=== PATIENT | female | born 1960 | race Caucasian/White ===

== ENCOUNTER 2017-03-17 10:53 | Emergency (ER) | payer MEDICARE, OTHER ==
[2017-03-17] MEDS ORDERED: methylPREDNISolone Sod Succ/PF 125 MG/2 ML VIAL ONE (11:27)
[2017-03-17] MEDS ORDERED: Magnesium Sulfate 2 GM/100 ML BAG ONE (11:27)
[2017-03-17] MEDS ORDERED: Water For Inject, Bacteriostat 30 ML ONE (11:28)
[2017-03-17 11:34] LABS: #Basophils 0.1 thou/uL (0.0-0.2); #Eosinphils 0.6 thou/uL (0.0-0.7); #Lymphocytes 2.2 thou/uL (1.20-3.40); #Monocytes 0.5 thou/uL (0.11-0.59); #Neutrophils 3.2 thou/uL (1.40-6.50); %Basophils 1.2 % (0.0-1.0); %Eosinophils 9.1 % (0.0-10.0); %Lymphocytes 33.5 % (21.0-51.0); Mean Platelet Volume 8.2 fL (7.4-10.4); Red Blood Cell (RBC) Count 4.72 mill/uL (4.20-5.40); White Blood Cell (WBC) Count 6.5 thou/uL (4.8-10.8)
--- NOTE | 2017-03-17 11:43 | RAD ---
SINGLE VIEW OF THE CHEST: Comparison: 12-11-16 History: Shortness of breath, dyspnea. FINDINGS: Single view of the chest shows a normal sized cardiomediastinal silhouette. There is no evidence of consolidation, mass, or pleural effusion. The patient has bilateral breast implants. IMPRESSION: No evidence of acute cardiopulmonary disease. POS: [facility]
[2017-03-17 11:52] LABS: ALT (SGPT) 11 U/L (8-55); AST (SGOT) 26 U/L (5-34); Alkaline Phosphatase 69 U/L (40-150); Anion Gap 12 mmol/L (10-20); BUN (Urea Nitrogen) 7 mg/dL (9.8-20.1); Bilirubin, Total 1.2 mg/dL (0.2-1.2); Calc. Creatinine Clearance 0 mL/min (70-130); Calcium 9.9 mg/dL (7.8-10.44); Carbon Dioxide 29 mmol/L (22-29); Chloride 103 mmol/L (98-107); Estimated GFR-MDRD 80; Globulin 3.2 g/dL (2.4-3.5); Protein, Total 7.2 g/dL (6.0-8.3)
[2017-03-17] MEDS ORDERED: Albuterol Sulfate 2.5 mg/0.5 ml Neb ONE (13:20)
[2017-03-17] MEDS ORDERED: Albuterol Sulfate 2.5 mg/3 ml Neb ONE (13:20)
--- NOTE | 2017-03-20 14:48 | EKG ---
Test Reason : Blood Pressure : / mmHG Vent. Rate : 067 BPM Atrial Rate : 067 BPM P-R Int : 132 ms QRS Dur : 080 ms QT Int : 452 ms P-R-T Axes : 077 089 072 degrees QTc Int : 477 ms Normal sinus rhythm Possible Left atrial enlargement Borderline ECG Confirmed by NIKOLE MOSER, POONAM Rodriguez ([id number]), acquisition editor MILDRED REID ([id number]) on 03/20/2017 2:48:11 PM Referred By: Confirmed By:POONAM AGUSTIN MD
== END 2017-03-17 15:00 | disposition home or self-care (01) ==
LOC: ERS 10:53
DX: J44.1 Chronic obstructive pulmonary disease with (acute) exacerbation (principal); F41.9 Anxiety disorder, unspecified; F43.10 Post-traumatic stress disorder, unspecified; Z87.891 Personal history of nicotine dependence; Z79.899 Other long term (current) drug therapy
CPT/HCPCS: 36415; 71010; 80053; 85025; 93005; 94640; 96365; 96375; J2930; J3475; J7611; J7620

== ENCOUNTER 2017-07-10 17:20 | Emergency (ER) | payer MEDICARE ==
[2017-07-10 18:25] LABS: #Basophils 0.1 thou/uL (0.0-0.2); #Eosinphils 0.7 thou/uL (0.0-0.7); #Lymphocytes 2.8 thou/uL (1.20-3.40); #Monocytes 0.4 thou/uL (0.11-0.59); #Neutrophils 3.5 thou/uL (1.40-6.50); %Basophils 1.7 % (0.0-1.0); %Monocytes 4.9 % (0.0-10.0); %Neutrophils 46.4 % (42.0-75.0); Mean Corpuscular HGB CONC 32.7 g/dL (32.0-36.0); Mean Corpuscular Hemoglobin 31.7 pg (27.0-31.0); Mean Corpuscular Volume 96.9 fl (81.0-99.0); Mean Platelet Volume 8.8 fL (7.4-10.4); Platelet Count 204 thou/uL (130-400); RBC Distribution Width 12.1 % (11.5-14.5); Red Blood Cell (RBC) Count 4.42 mill/uL (4.20-5.40); White Blood Cell (WBC) Count 7.4 thou/uL (4.8-10.8)
[2017-07-10 18:33] LABS: Anion Gap 13 mmol/L (10-20); BUN (Urea Nitrogen) 9 mg/dL (9.8-20.1); Calc. Creatinine Clearance 0 mL/min (70-130); Calcium 10.1 mg/dL (7.8-10.44); Carbon Dioxide 30 mmol/L (22-29); Chloride 102 mmol/L (98-107); Estimated GFR-MDRD 69; Glucose 126 mg/dL (70-105); Sodium 141 mmol/L (136-145)
--- NOTE | 2017-07-10 18:48 | RAD ---
SINGLE VIEW OF THE CHEST 07/10/17 COMPARISON: 03/17/17 HISTORY: Dyspnea. FINDINGS: Single view of the chest shows a normal sized cardiomediastinal silhouette. There is no evidence of c onsolidation, mass or pleural effusion. Degenerative changes are see in the spine. The patient has bi lateral breast implants. IMPRESSION: No evidence of acute cardiopulmonary disease. POS: [facility]
[2017-07-10] MEDS ORDERED: methylPREDNISolone Sod Succ/PF 125 MG/2 ML VIAL ONE ×2 (19:42→19:43)
== END 2017-07-10 21:26 | disposition home or self-care (01) ==
LOC: ERS 17:20
DX: J44.1 Chronic obstructive pulmonary disease with (acute) exacerbation (principal); I10 Essential (primary) hypertension; F41.9 Anxiety disorder, unspecified; F43.10 Post-traumatic stress disorder, unspecified; Z79.899 Other long term (current) drug therapy; Z87.891 Personal history of nicotine dependence
CPT/HCPCS: 36416; 71045; 80048; 85025; 93005; 94640; 96374; J2930; J7620

== ENCOUNTER 2017-09-21 23:47 | Emergency (ER) | payer MEDICARE ==
[2017-09-22] MEDS ORDERED: Ondansetron ODT 4 MG TAB ONE (00:41)
[2017-09-22 00:50] LABS: #Basophils 0.1 thou/uL (0.0-0.2); #Eosinphils 0.1 thou/uL (0.0-0.7); #Lymphocytes 2.4 thou/uL (1.20-3.40); #Monocytes 0.6 thou/uL (0.11-0.59); #Neutrophils 7.4 thou/uL (1.40-6.50); %Basophils 0.8 % (0.0-1.0); %Eosinophils 1.4 % (0.0-10.0); %Lymphocytes 22.7 % (21.0-51.0); %Monocytes 5.7 % (0.0-10.0); %Neutrophils 69.3 % (42.0-75.0); Hemoglobin 14.5 g/dL (12.0-16.0); Mean Corpuscular HGB CONC 32.6 g/dL (32.0-36.0); Mean Corpuscular Hemoglobin 31.6 pg (27.0-31.0); Mean Platelet Volume 7.8 fL (7.4-10.4); Platelet Count 210 thou/uL (130-400); RBC Distribution Width 11.8 % (11.5-14.5); White Blood Cell (WBC) Count 10.6 thou/uL (4.8-10.8)
[2017-09-22] MEDS ORDERED: Albuterol Sulfate 2.5 mg/3 ml Neb ONE (00:54)
[2017-09-22 01:04] LABS: ALT (SGPT) 13 U/L (8-55); AST (SGOT) 21 U/L (5-34); Albumin 4.3 g/dL (3.5-5.0); Alcohol Less than 10 mg/dL (Less than 10); Alkaline Phosphatase 64 U/L (40-150); Anion Gap 14 mmol/L (10-20); BUN (Urea Nitrogen) 12 mg/dL (9.8-20.1); Bilirubin, Total 0.4 mg/dL (0.2-1.2); Calc. Creatinine Clearance 0 mL/min (70-130); Calcium 9.9 mg/dL (7.8-10.44); Carbon Dioxide 24 mmol/L (22-29); Chloride 106 mmol/L (98-107); Estimated GFR-MDRD 78; Globulin 2.9 g/dL (2.4-3.5); Glucose 107 mg/dL (70-105); Potassium 3.7 mmol/L (3.5-5.1); Protein, Total 7.2 g/dL (6.0-8.3); Sodium 140 mmol/L (136-145)
[2017-09-22] MEDS ORDERED: Promethazine HCl 25 MG/ML VIAL ONE (01:15)
[2017-09-22] MEDS ORDERED: diphenhydrAMINE 50 MG/ML VIAL ONE (01:15)
[2017-09-22] MEDS ORDERED: Cyclobenzaprine 10 MG TAB ONE (01:39)
--- NOTE | 2017-09-22 08:14 | RAD ---
PORTABLE SEMI UPRIGHT FRONTAL CHEST RADIOGRAPH: Date: 09-22-17 Comparison: 07-10-17 History: COPD exacerbation, shortness of breath, cough. FINDINGS: There is no pneumothorax, pleural fluid, focal consolidation or alveolar edema. Mild increase interst itial density is noted, stable. Mild multilevel right sided thoracic spine osteophyte formation. IMPRESSION: No acute findings. POS: [facility]
--- NOTE | 2017-11-24 12:32 | EKG ---
Test Reason : Blood Pressure : / mmHG Vent. Rate : 096 BPM Atrial Rate : 096 BPM P-R Int : 134 ms QRS Dur : 088 ms QT Int : 398 ms P-R-T Axes : 076 087 033 degrees QTc Int : 502 ms Normal sinus rhythm Biatrial enlargement Prolonged QT Abnormal ECG Confirmed by KIRK VILLARREAL ([id number]), editor sound MILDRED REID ([id number]) on 11/24/2017 12:31:50 PM Referred By: Confirmed By:KIRK VILLARREAL
== END 2017-09-22 02:20 | disposition home or self-care (01) ==
LOC: EDBD → ERS 23:47
DX: J44.9 Chronic obstructive pulmonary disease, unspecified (principal); R51 Headache; F41.9 Anxiety disorder, unspecified; F43.10 Post-traumatic stress disorder, unspecified; Z87.891 Personal history of nicotine dependence; Z79.899 Other long term (current) drug therapy
CPT/HCPCS: 36415; 71045; 80053; 80307; 85025; 93005; 94640; 96374; 96375; J1200; J2550; J7611; Q0162

== ENCOUNTER 2017-10-26 09:32 | Inpatient (IN) | payer MEDICARE ==
[2017-10-26] MEDS ORDERED: Fentanyl 100 MCG/2 ML VIAL ONE ×2 (09:36→11:20)
[2017-10-26] MEDS ORDERED: Propofol 1,000 MG/100 ML VIAL IV ONE (09:37)
[2017-10-26 09:50] LABS: #Basophils 0.1 thou/uL (0.0-0.2); #Eosinphils 0.4 thou/uL (0.0-0.7); #Lymphocytes 3.7 thou/uL (1.20-3.40); #Monocytes 0.6 thou/uL (0.11-0.59); #Neutrophils 4.2 thou/uL (1.40-6.50); %Basophils 1.6 % (0.0-1.0); %Eosinophils 4.4 % (0.0-10.0); %Lymphocytes 41.1 % (21.0-51.0); %Monocytes 6.7 % (0.0-10.0); %Neutrophils 46.1 % (42.0-75.0); Hemoglobin 14.5 g/dL (12.0-16.0); Mean Corpuscular HGB CONC 33.5 g/dL (32.0-36.0); Mean Corpuscular Volume 95.5 fl (81.0-99.0); Mean Platelet Volume 8.3 fL (7.4-10.4); Platelet Count 192 thou/uL (130-400); RBC Distribution Width 11.6 % (11.5-14.5); Red Blood Cell (RBC) Count 4.51 mill/uL (4.20-5.40)
[2017-10-26 09:56] LABS: Actual Bicarbonate (HCO3a) 24.6 mEq/L (22-26); Analyzer IN Cardio ER; Base Excess (BEa) -1.8 mEq/L (0 (+/-) 2.5); CO2 Tension 48.2 mmHg (35.0-45.0); Calcium, Ionized 1.2 mmol/L (1.12-1.30); Hemoglobin (Hb) 13.3 g/dL (12.0-16.0); O2 Tension (PaO2) 92.7 mmHg (80.0-100.0); Puncture Site RRA; pH, Arterial 7.32 (7.35-7.45)
[2017-10-26 10:10] LABS: ALT (SGPT) 13 U/L (8-55); AST (SGOT) 23 U/L (5-34); Albumin 4.4 g/dL (3.5-5.0); Alkaline Phosphatase 65 U/L (40-150); Anion Gap 9 mmol/L (10-20); BUN (Urea Nitrogen) 13 mg/dL (9.8-20.1); Bilirubin, Total 0.8 mg/dL (0.2-1.2); Calc. Creatinine Clearance 0 mL/min (70-130); Calcium 8.9 mg/dL (7.8-10.44); Carbon Dioxide 26 mmol/L (22-29); Chloride 109 mmol/L (98-107); Estimated GFR-MDRD 81; Globulin 2.7 g/dL (2.4-3.5); Glucose 121 mg/dL (70-105); Potassium 3.3 mmol/L (3.5-5.1); Protein, Total 7.1 g/dL (6.0-8.3); Sodium 141 mmol/L (136-145)
[2017-10-26 10:14] LABS: CKMB 2.7 ng/mL (0-6.6); Troponin I Less than 0.010 ng/mL (< 0.028)
--- NOTE | 2017-10-26 11:02 | RAD ---
FRONTAL VIEW CHEST SERIES: COMPARISON: 09/22/17. INDICATION: Respiratory distress, asthma, intubation. FINDINGS: Endotracheal tube is present with tip at the thoracic inlet level. There is an esophagogastric tube which traverses to the left upper abdomen, below the field of view. No lobar consolidation or effusi on. No discrete pneumothorax. IMPRESSION: 1. Supportive tubes as above. 2. No focal consolidation. POS: [facility]
[2017-10-26 11:17] LABS: Bilirubin Negative (Negative); Blood, Urine Negative (Negative); Glucose, Urine (Dipstick) Negative (Negative); Leukocyte Negative (Negative); Nitrite Negative (Negative); Protein, Urine (Dipstick) Negative (Neg-Trace); Urobilinogen 0.2 mg/dL (0.2-1.0)
[2017-10-26 11:19] LABS: Clarity Clear (Clear)
[2017-10-26] MEDS ORDERED: fentaNYL Citrate/PF 2,000 MCG in Sodium Chloride 0.9% 60 ML IV SCH (11:56)
[2017-10-26] MEDS ORDERED: Fentanyl BOLUS 250 ML IVPB PRN (11:56)
[2017-10-26] MEDS ORDERED: DISCONTINUE PREVIOUS NARCOTIC PAIN MEDICATIONS AND BENZODIAZEPINES FS SCH (11:56)
[2017-10-26] MEDS ORDERED: Propofol BOLUS 1,000 MG/100 ML VIAL IV PRN (11:56)
[2017-10-26] MEDS ORDERED: Morphine 4 MG/ML VIAL SLOW IVP PRN (11:56)
[2017-10-26] MEDS ORDERED: Ventilator Sedation Protocol 1 EACH FS SCH (12:00)
[2017-10-26] MEDS ORDERED: Acetaminophen 325 MG TAB PO PRN (12:09)
[2017-10-26] MEDS: Sodium Chloride 0.9% 1,000 ML IV SCH ×2 (12:16→20:07)
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
[2017-10-26] MEDS: cefTRIAXone\\ROCEPHIN 1 GM in Sodium Chloride 0.9% 100 ML IVPB SCH (12:21)
[2017-10-26] MEDS ORDERED: Ondansetron ODT 4 MG TAB PO PRN (12:24)
[2017-10-26] MEDS ORDERED: Ondansetron HCl/PF 4 MG/2 ML Vial IVP PRN (12:24)
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
[2017-10-26] MEDS: Propofol 1,000 MG/100 ML VIAL IV PRN ×2 (13:01→20:22)
[2017-10-26] MEDS: Lorazepam 2 MG/ML VIAL SLOW IVP PRN ×2 (13:01→21:14)
[2017-10-26 13:22] LABS: Amphetamine Not Detected (NotDetected); Barbiturates Screen Not Detected (NotDetected); Benzodiazepine Screen Detected (NotDetected); Cocaine Metabolite Screen Detected (NotDetected); Medtox Control Line Valid? VALID (VALID); Medtox Reader # READER 4; Methadone Not Detected (NotDetected); Methamphetamine Not Detected (NotDetected); Opiate Screen Not Detected (NotDetected); Oxycodone Screen Not Detected (NotDetected); Phencyclidine (PCP) Not Detected (NotDetected); THC/Cannabinoid Screen Not Detected (NotDetected); Tricyclic Screen Not Detected (NotDetected)
[2017-10-26] MEDS ORDERED: Potassium Chloride 40 MEQ in Sodium Chloride 0.9% 250 ML 250 ML IVPB SCH (13:30)
[2017-10-26 16:48] VITALS: BMI 21.7
[2017-10-27 05:09] LABS: #Lymphocytes 1.2 thou/uL (1.20-3.40); #Monocytes 0.2 thou/uL (0.11-0.59); #Neutrophils 7.5 thou/uL (1.40-6.50); %Basophils 0.2 % (0.0-1.0); %Monocytes 2.7 % (0.0-10.0); Hemoglobin 13.1 g/dL (12.0-16.0); Mean Corpuscular HGB CONC 33.8 g/dL (32.0-36.0); Mean Corpuscular Hemoglobin 31.8 pg (27.0-31.0); Mean Corpuscular Volume 94.1 fl (81.0-99.0); Mean Platelet Volume 8.2 fL (7.4-10.4); Platelet Count 193 thou/uL (130-400); RBC Distribution Width 11.7 % (11.5-14.5); Red Blood Cell (RBC) Count 4.12 mill/uL (4.20-5.40); White Blood Cell (WBC) Count 8.9 thou/uL (4.8-10.8)
[2017-10-27 06:04] LABS: Anion Gap 9 mmol/L (10-20); BUN (Urea Nitrogen) 17 mg/dL (9.8-20.1); Calc. Creatinine Clearance 86 mL/min (70-130); Calcium 8.6 mg/dL (7.8-10.44); Carbon Dioxide 24 mmol/L (22-29); Chloride 111 mmol/L (98-107); Estimated GFR-MDRD 90; Glucose 123 mg/dL (70-105); Potassium 4.1 mmol/L (3.5-5.1); Sodium 140 mmol/L (136-145)
[2017-10-27 07:01] LABS: Actual Bicarbonate (HCO3a) 23.2 mEq/L (22-26); Base Excess (BEa) -1.2 mEq/L (0 (+/-) 2.5); CO2 Tension 37.7 mmHg (35.0-45.0); Hematocrit-ABG 37.1 % (36.0-47.0); Hemoglobin (Hb) 12.4 g/dL (12.0-16.0); O2 Tension (PaO2) 82.3 mmHg (80.0-100.0); pH, Arterial 7.41 (7.35-7.45)
[2017-10-27 07:02] LABS: ALV-art Gradient 82.975 (0-20); Calcium, Ionized 1.2 mmol/L (1.12-1.30); Puncture Site RR
--- NOTE | 2017-10-27 07:28 | PDOC.FM ---
- Subjective Subjective: Patient remains sedated and intubated. Overnight, nursing staff did not note any acute events and that patient was sedated through the night. Her BP was noted to be low on sedation, but pulse is not tachy. - Objective MAR Reviewed: Yes Vital Signs & Weight: Vital Signs (12 hours) Temp Pulse Resp BP Pulse Ox 10/27/17 07:16 59 L 89/54 L 95 10/27/17 06:00 16 10/27/17 04:00 98.5 F 14 10/27/17 02:59 67 91/66 10/27/17 02:00 14 10/27/17 00:00 98.1 F 14 10/26/17 22:27 62 93/61 10/26/17 22:00 14 10/26/17 20:00 98.5 F 66 14 98 Weight Admit Weight 59.1 kg Weight 59.1 kg Most Recent Monitor Data Heart Rate from ECG 62 NIBP 89/54 NIBP BP-Mean 70 Respiration from ECG 14 SpO2 96 I&O: 10/26/17 10/27/17 10/28/17 06:59 06:59 06:59 Intake Total 2219 0 Output Total 1165 50 Balance 1054 -50 Result Diagrams: 10/27/17 04:23 10/27/17 04:23 <Dakota Chakraborty M - Last Filed: 10/27/17 07:26> - Objective Vital Signs & Weight: Vital Signs (12 hours) Temp Pulse Resp BP Pulse Ox 10/27/17 08:21 70 25 H 98 10/27/17 08:00 14 10/27/17 07:20 98.5 F 60 14 97 10/27/17 07:16 59 L 89/54 L 95 10/27/17 06:00 16 10/27/17 04:00 98.5 F 14 10/27/17 02:59 67 91/66 10/27/17 02:00 14 10/27/17 00:00 98.1 F 14 Weight Admit Weight 59.1 kg Weight 59.1 kg Most Recent Monitor Data Heart Rate from ECG 90 NIBP 100/56 NIBP BP-Mean 76 Respiration from ECG 20 SpO2 93 I&O: 10/26/17 10/27/17 10/28/17 06:59 06:59 06:59 Intake Total 2219 360 Output Total 1165 260 Balance 1054 100 Result Diagrams: 10/27/17 04:23 10/27/17 04:23 <IsauroMemo Pavan - Last Filed: 10/27/17 11:20> Phys Exam - Physical Examination Intubated HEENT: moist MMs Neck: no JVD Rhonchi heard throughout. Cardiovascular: RRR, no significant murmur Gastrointestinal: soft, non-tender, no distention, positive bowel sounds Musculoskeletal: no edema Skin: no rash <Dakota Chakraborty - Last Filed: 10/27/17 07:26> Dx/Plan (1) Acute respiratory failure with hypoxia Code(s): J96.01 - ACUTE RESPIRATORY FAILURE WITH HYPOXIA Status: Acute Plan: Currently intubated on 30% O2. Patient O2 saturation is good. Patient tolerating vent ABG today shows improvement compared to yesterday Plan to follow up with pulm recs, possible extubation today. (2) COPD exacerbation Code(s): J44.1 - CHRONIC OBSTRUCTIVE PULMONARY DISEASE W (ACUTE) EXACERBATION Status: Acute Plan: Patient was found on ground gasping by EMS - Current lab shows cocaine positive, but no WBC elevation, UA normal, normal BNP, normal trop, EKG not changed from previous visit, CXR clear and on arrival no wheezing on exam - Consider COPD exacerbation due to previous hx, less likely asthma, substance abuse/overdose - Current plan for ceftriaxone, steroid, bronchodilator, and supportive O2. Follow with patient's clinical staus. (3) Anxiety and depression Code(s): F41.9 - ANXIETY DISORDER, UNSPECIFIED; F32.9 - MAJOR DEPRESSIVE DISORDER, SINGLE EPISODE, UNSPECIFIED Status: Chronic Plan: Chronic issue which patient is not on medication for. Will follow up when patient is awake. (4) Hypokalemia Code(s): E87.6 - HYPOKALEMIA Status: Acute Plan: Resolved at this time, after correction with 40 meq K (5) Hx of hepatitis C Code(s): Z86.19 - PERSONAL HISTORY OF OTHER INFECTIOUS AND PARASITIC DISEASES Status: Acute Plan: Resolved prior ot admission <Dakota Chakraborty - Last Filed: 10/27/17 07:26> Attending Addendum - Attending Addendum Date/Time: 10/27/17 1119 I personally evaluated the patient and discussed the management with Dr. Chakraborty. I agree with the History, Examination, Assessment and Plan documented above with any addition or exceptions noted below. Patient is s/p extubation and doing well. She has already tolerated a normal diet for breakfast and is only requiring nasal cannula. She had hypoxic respiratory failure likely 2/2 a combination of COPD and cocaine use. Diffuse rhonchi and productive cough, though this may be chronic in nature. Will transfer to Medical floor later today. Labs overall stable. Will need to continue breathing treatments and steroid taper. <Memo Box - Last Filed: 10/27/17 11:20>
--- NOTE | 2017-10-27 08:26 | PRG ---
DATE OF SERVICE: 10/27/2017 She is sedated this morning on the vent, fentanyl and Diprivan. PHYSICAL EXAMINATION: VITAL SIGNS: Pulse 59, blood pressure 100/61, sats 95, respirations 14. She is sedated. HEENT: Pupils are equal. CHEST: Chest reveals decreased breath sounds, minimal wheezing. CARDIAC: Normal S1, S2, no gallops. ABDOMEN: Soft. EXTREMITIES: No edema. I's and O's have been slightly ahead. White count is 8000, H&H 13 and 38, platelet count is normal. PO2 is 82, PCO2 37, pH 7.41 on 30% FiO2. Electrolytes are normal. She had a toxicology screen whic h did show some cocaine. IMPRESSION: 1. Chronic obstructive pulmonary disease exacerbation. 2. Ongoing tobacco abuse. 3. Substance abuse. PLAN: Wean sedation. Hopefully, we can extubate today. In the meantime steroids, neb treatments, s upportive care. I will follow. One-half hour critical care time.
[2017-10-27] MEDS: Enoxaparin Sodium 40 MG/0.4 ML SYRINGE SC SCH (08:34)
[2017-10-27] MEDS: Sodium Chloride 0.9% 1,000 ML IV SCH ×2 (08:36→18:01)
[2017-10-27] MEDS ORDERED: Pantoprazole 40 MG VIAL IVP SCH (09:00)
--- NOTE | 2017-10-27 09:03 | RAD ---
PORTABLE AP CHEST RADIOGRAPH: Date: 10-27-17 History: On ventilator. Follow up evaluation. Comparison: 10-18-17 FINDINGS: Endotracheal tube and nasogastric tube remain in place and unchanged in position. Cardiac silhouette and pulmonary vasculature are within normal limits. There is slight blunting of the left lateral cost ophrenic angle. This may be related to overlying soft tissue density as opposed to a tiny pleural eff usion. Bilateral prostheses are noted. There has been no significant interval change from prior exam. IMPRESSION: Slight blunting of the left lateral costophrenic angle which may be related to overlying soft tissue density as opposed to tiny left pleural effusion. Chest is otherwise stable. POS: [facility]
[2017-10-27] MEDS: ALPRAZolam 0.5 MG TAB PO PRN ×2 (12:46→21:32)
[2017-10-27] MEDS: cefTRIAXone\\ROCEPHIN 1 GM in Sodium Chloride 0.9% 100 ML IVPB SCH (12:51)
[2017-10-27] MEDS ORDERED: Ibuprofen 600 MG TAB PO PRN (21:38)
[2017-10-27] MEDS ORDERED: Acetaminophen 650 MG Suppository PR PRN (21:38)
[2017-10-27] MEDS: Acetaminophen 325 MG TAB PO PRN (23:54)
[2017-10-28 04:54] LABS: #Lymphocytes 1.2 thou/uL (1.20-3.40); #Monocytes 0.2 thou/uL (0.11-0.59); #Neutrophils 11.2 thou/uL (1.40-6.50); %Basophils 0.1 % (0.0-1.0); %Eosinophils 0.1 % (0.0-10.0); %Lymphocytes 9.5 % (21.0-51.0); %Monocytes 1.8 % (0.0-10.0); %Neutrophils 88.5 % (42.0-75.0); Anion Gap 8 mmol/L (10-20); BUN (Urea Nitrogen) 16 mg/dL (9.8-20.1); Calc. Creatinine Clearance 86 mL/min (70-130); Calcium 8.7 mg/dL (7.8-10.44); Carbon Dioxide 27 mmol/L (22-29); Chloride 107 mmol/L (98-107); Estimated GFR-MDRD 90; Glucose 136 mg/dL (70-105); Mean Corpuscular HGB CONC 33.5 g/dL (32.0-36.0); Mean Corpuscular Hemoglobin 32.3 pg (27.0-31.0); Mean Corpuscular Volume 96.3 fl (81.0-99.0); Mean Platelet Volume 8.8 fL (7.4-10.4); Platelet Count 177 thou/uL (130-400); Potassium 4.2 mmol/L (3.5-5.1); RBC Distribution Width 11.9 % (11.5-14.5); Red Blood Cell (RBC) Count 3.71 mill/uL (4.20-5.40); Sodium 138 mmol/L (136-145); White Blood Cell (WBC) Count 12.6 thou/uL (4.8-10.8)
[2017-10-28 07:33] VITALS: BP 114/75; TEMP 97.6
[2017-10-28] MEDS: ALPRAZolam 0.5 MG TAB PO PRN (08:01)
[2017-10-28] MEDS: Acetaminophen 325 MG TAB PO PRN (08:06)
[2017-10-28] MEDS: Enoxaparin Sodium 40 MG/0.4 ML SYRINGE SC SCH (08:10)
--- NOTE | 2017-10-28 08:54 | PRG ---
DATE OF SERVICE: 10/28/2017 This morning, awake, alert and responsive. She is better. PHYSICAL EXAMINATION: VITAL SIGNS: Blood pressure 114/72, sats 95% on room air, respiration rate 18, temperature 97, pulse 60. CHEST: Chest revealed decreased breath sounds, no wheezing. CARDIAC: Normal S1, S2, no gallops. ABDOMEN: Soft. No masses. LABORATORY: Unremarkable. White count is 12,000. Chest x-ray shows no acute infiltrates. IMPRESSION: 1. Chronic obstructive pulmonary disease exacerbation. 2. Bronchitis. PLAN: P.o. medication. DISPOSITION: Home anytime on oral medication.
[2017-10-28] MEDS ORDERED: Doxycycline 100 MG CAP PO SCH (09:00)
--- NOTE | 2017-10-28 09:21 | PDOC.FM ---
- Subjective Subjective: Patient ing, up in bed, talking in complete sentences without apparent dyspnea. She enjoys organic and non-process food. - Objective MAR Reviewed: Yes Vital Signs & Weight: Vital Signs (12 hours) Temp Pulse Resp BP Pulse Ox 10/28/17 07:32 97.6 F 60 18 114/75 95 10/28/17 04:07 98.4 F 62 20 111/71 93 L 10/28/17 01:00 98.3 F 63 18 94/53 L 95 Weight Admit Weight 59.1 kg Weight 59.1 kg Most Recent Monitor Data Heart Rate from ECG 76 NIBP 94/59 NIBP BP-Mean 66 Respiration from ECG 35 SpO2 97 I&O: 10/27/17 10/28/17 10/29/17 06:59 06:59 06:59 Intake Total 2219 2400 Output Total 1165 1010 Balance 1054 1390 Result Diagrams: 10/28/17 03:47 10/28/17 03:47 <Dakota Chakraborty M - Last Filed: 10/28/17 09:19> - Objective Vital Signs & Weight: Vital Signs (12 hours) Temp Pulse Resp BP Pulse Ox 10/28/17 07:32 97.6 F 60 18 114/75 95 10/28/17 04:07 98.4 F 62 20 111/71 93 L 10/28/17 01:00 98.3 F 63 18 94/53 L 95 Weight Admit Weight 59.1 kg Weight 59.1 kg Most Recent Monitor Data Heart Rate from ECG 76 NIBP 94/59 NIBP BP-Mean 66 Respiration from ECG 35 SpO2 97 I&O: 10/27/17 10/28/17 10/29/17 06:59 06:59 06:59 Intake Total 2219 2400 Output Total 1165 1010 Balance 1054 1390 Result Diagrams: 10/28/17 03:47 10/28/17 03:47 <Memo Box R - Last Filed: 10/28/17 10:58> Phys Exam - Physical Examination Constitutional: NAD HEENT: moist MMs Neck: no nodes, supple Respiratory: no wheezing Rhonchi present Cardiovascular: RRR Gastrointestinal: soft, no distention Musculoskeletal: no edema Neurological: non-focal Lymphatic: no nodes Psychiatric: normal affect Skin: no rash <Dakota Chakraborty M - Last Filed: 10/28/17 09:19> Dx/Plan (1) Acute respiratory failure with hypoxia Code(s): J96.01 - ACUTE RESPIRATORY FAILURE WITH HYPOXIA Status: Acute Plan: Not on any O2, sat of 95% and not symptomatic Resolved issue, but patient desire O2 concentrator. Will walk patient to see if qualify. (2) COPD exacerbation Code(s): J44.1 - CHRONIC OBSTRUCTIVE PULMONARY DISEASE W (ACUTE) EXACERBATION Status: Acute Plan: Improved issue. Will go home with inhaled steroids, abx, oral steroid. (3) Anxiety and depression Code(s): F41.9 - ANXIETY DISORDER, UNSPECIFIED; F32.9 - MAJOR DEPRESSIVE DISORDER, SINGLE EPISODE, UNSPECIFIED Status: Chronic Plan: Patient doing better at this time, though requesting xanax. May give one dose prior to discharge but patient will have to obtain rx at pcp. (4) Hypokalemia Code(s): E87.6 - HYPOKALEMIA Status: Acute Plan: Resolved issue. (5) Hx of hepatitis C Code(s): Z86.19 - PERSONAL HISTORY OF OTHER INFECTIOUS AND PARASITIC DISEASES Status: Acute Plan: Resolved prior to admission <Dakota Chakraborty - Last Filed: 10/28/17 09:19> Attending Addendum - Attending Addendum Date/Time: 10/28/17 5470 I personally evaluated the patient and discussed the management with Dr. Chakraborty. I agree with the History, Examination, Assessment and Plan documented above with any addition or exceptions noted below. Patient doing well. Ambulating without difficulty or shortness of breath. Labs stable. We will be discharging home today with oral steroids and antibiotics. Will send rx for her to be able to continue ICS/LABA combo for her COPD. Advise cessation from illicit drugs. <Memo Box - Last Filed: 10/28/17 10:58>
--- NOTE | 2017-10-28 09:57 | RAD ---
PORTABLE UPRIGHT FRONTAL CHEST RADIOGRAPH: Date: 10-28-17 Comparison: 10-27-17 History: Ventilated patient. FINDINGS: The endotracheal tube and nasogastric tube have been removed since the prior examination. No pneumoth orax, pleural fluid, lobar consolidation, or alveolar edema. IMPRESSION: Interval removal of nasogastric tube and endotracheal tube. No focal consolidation. POS: [facility]
[2017-10-29] MEDS ORDERED: predniSONE 20 MG TAB PO SCH (08:00)
== END 2017-10-28 16:04 | disposition home or self-care (01) | DRG 208 ==
LOC: ERS 09:32 → CCU 11:00 → T4-A 10-27 16:45
PROVIDERS: ADMIT Neuromusculoskeletal Medicine & OMM; ATTEND Neuromusculoskeletal Medicine & OMM
PROC: 5A1945Z Respiratory Ventilation, 24-96 Consecutive Hours (ICD-10-PCS; principal; 2017-10-26)
PROC: 0BH17EZ Insertion of Endotracheal Airway into Trachea, Via Natural or Artificial Opening (ICD-10-PCS; 2017-10-26)
DX: J44.1 Chronic obstructive pulmonary disease with (acute) exacerbation (principal); J96.01 Acute respiratory failure with hypoxia; F41.9 Anxiety disorder, unspecified; F15.129 Other stimulant abuse with intoxication, unspecified; F14.129 Cocaine abuse with intoxication, unspecified; F32.9 Major depressive disorder, single episode, unspecified; E87.6 Hypokalemia; F43.10 Post-traumatic stress disorder, unspecified; Z86.19 Personal history of other infectious and parasitic diseases; Z87.891 Personal history of nicotine dependence; Z87.828 Personal history of other (healed) physical injury and trauma; X58.XXXA Exposure to other specified factors, initial encounter; Y92.009 Unspecified place in unspecified non-institutional (private) residence as the place of occurrence of the external cause
CPT/HCPCS: 36415; 51702; 71045; 80048; 80053; 80306; 80307; 81003; 82553; 82805; 83605; 83880; 84484; 85025; 87040; 93005; 94002; 94003; 94640; 94760; 96365; 96366; 96374; 96375; A4216; C9113; J0696; J1650; J2060; J2704; J2920; J3010; J3480; J7050; J7620

== ENCOUNTER 2018-05-18 08:53 | Emergency (ER) | payer MEDICARE ==
[2018-05-18] MEDS ORDERED: Ketorolac Tromethamine 60 MG/2 ML VIAL ONE (09:23)
[2018-05-18] MEDS ORDERED: Dexamethasone 4 mg/ml Vial ONE (09:34)
--- NOTE | 2018-05-18 10:11 | RAD ---
CHEST 2 VIEWS: HISTORY: Cough and fever. COMPARISON: 10/28/2017. FINDINGS: Cardiac silhouette and pulmonary vasculature are unremarkable. Mediastinum is midline. No confluent airspace consolidation, pneumothorax, or pleural fluid. Calcified right breast implant. IMPRESSION: No active cardiopulmonary abnormalities are demonstrated. POS: [facility]
== END 2018-05-18 10:18 | disposition home or self-care (01) ==
LOC: ERS 08:53
DX: J02.9 Acute pharyngitis, unspecified (principal); B34.9 Viral infection, unspecified; J44.9 Chronic obstructive pulmonary disease, unspecified; F43.10 Post-traumatic stress disorder, unspecified; F41.9 Anxiety disorder, unspecified; Z87.891 Personal history of nicotine dependence
CPT/HCPCS: 71046; 87804; 96372; J1100; J1885

== ENCOUNTER 2019-01-09 14:45 | Emergency (ER) | payer MEDICARE ==
--- NOTE | 2019-01-09 15:15 | RAD ---
Chest one view HISTORY: Dyspnea. Headache. COMPARISON: 10/28/2017. FINDINGS: Cardiac silhouette is magnified by projection. Pulmonary vasculature upper limits of normal . Vascular markings at the right apex and prominent parenchymal markings at the lung bases are stable compared to the previous exam. No lobar consolidation or evidence of pneumothorax. Hyperdensit y over each side of the chest has the appearance of breast implants. secured entrance monitor leads overlie the chest. IMPRESSION: No active cardiopulmonary abnormalities are demonstrated.
[2019-01-09] MEDS ORDERED: diphenhydrAMINE 50 MG/ML VIAL ONE (15:22)
[2019-01-09] MEDS ORDERED: Ketorolac Tromethamine 30 MG/ML VIAL ONE (15:22)
[2019-01-09] MEDS ORDERED: Metoclopramide HCl 10 MG/2 ML VIAL ONE (15:22)
== END 2019-01-09 19:10 | disposition home or self-care (01) ==
LOC: ERS 14:45
DX: R06.00 Dyspnea, unspecified (principal); R51 Headache; J44.9 Chronic obstructive pulmonary disease, unspecified; F41.9 Anxiety disorder, unspecified; F43.10 Post-traumatic stress disorder, unspecified; Z87.891 Personal history of nicotine dependence
CPT/HCPCS: 71045; 93005; 96374; 96375; J1200; J1885; J2765

== ENCOUNTER 2019-03-19 17:38 | Emergency (ER) | payer MEDICARE ==
[2019-03-19] MEDS ORDERED: methylPREDNISolone Sod Succ/PF 125 MG/2 ML VIAL ONE (17:59)
[2019-03-19 18:23] LABS: #Basophils 0.1 thou/uL (0.0-0.2); #Eosinphils 0.2 thou/uL (0.0-0.7); #Lymphocytes 2.3 thou/uL (1.20-3.40); #Monocytes 0.8 thou/uL (0.11-0.59); #Neutrophils 5.4 thou/uL (1.40-6.50); %Basophils 1.1 % (0.0-1.0); %Eosinophils 2.7 % (0.0-10.0); %Lymphocytes 26.1 % (21.0-51.0); %Monocytes 8.6 % (0.0-10.0); %Neutrophils 61.6 % (42.0-75.0); Hemoglobin 14.8 g/dL (12.0-16.0); Mean Corpuscular HGB CONC 33.8 g/dL (32.0-36.0); Mean Corpuscular Hemoglobin 31.6 pg (27.0-31.0); Mean Corpuscular Volume 93.4 fL (78.0-98.0); Mean Platelet Volume 7.7 fL (7.4-10.4); Platelet Count 230 thou/uL (130-400); Red Blood Cell (RBC) Count 4.69 mill/uL (4.20-5.40); White Blood Cell (WBC) Count 8.8 thou/uL (4.8-10.8)
[2019-03-19 18:37] LABS: ALT (SGPT) 12 U/L (8-55); AST (SGOT) 23 U/L (5-34); Acetaminophen Less than 6.0 mcg/mL (10.0-30.0); Albumin 4.7 g/dL (3.5-5.0); Alcohol Less than 10 mg/dL (Less than 10); Alkaline Phosphatase 73 U/L (40-110); Anion Gap 14 mmol/L (10-20); BUN (Urea Nitrogen) 16 mg/dL (9.8-20.1); Bilirubin, Total 0.8 mg/dL (0.2-1.2); Calc. Creatinine Clearance 0 mL/min (70-130); Calcium 10.3 mg/dL (7.8-10.44); Carbon Dioxide 29 mmol/L (22-29); Chloride 96 mmol/L (98-107); Estimated GFR-MDRD 61; Globulin 3.5 g/dL (2.4-3.5); Glucose 112 mg/dL (70-105); Potassium 3.7 mmol/L (3.5-5.1); Protein, Total 8.2 g/dL (6.0-8.3); Salicylate Less than 8.0 mg/dL (15.0-30.0); Sodium 135 mmol/L (136-145)
[2019-03-19 19:01] LABS: Amphetamine Not Detected (NotDetected); Barbiturates Screen Not Detected (NotDetected); Benzodiazepine Screen Not Detected (NotDetected); Cocaine Metabolite Screen Not Detected (NotDetected); Medtox Control Line Valid? VALID (VALID); Medtox Reader # READER 4; Methadone Not Detected (NotDetected); Methamphetamine Not Detected (NotDetected); Opiate Screen Not Detected (NotDetected); Oxycodone Screen Not Detected (NotDetected); Phencyclidine (PCP) Not Detected (NotDetected); THC/Cannabinoid Screen Not Detected (NotDetected); Tricyclic Screen Not Detected (NotDetected)
--- NOTE | 2019-03-19 19:09 | RAD ---
EXAM: Chest one view: HISTORY: Dyspnea COMPARISON: 01/09/2019 FINDINGS: Heart size: Within normal limits. Lungs: Clear of acute process. No evidence for pneumonia, pleural effusion, acute edema, or pneumothorax, or other significant acute process. IMPRESSION: No significant acute intrathoracic disease.
== END 2019-03-19 19:03 | disposition home or self-care (01) ==
LOC: ERS 17:38
DX: J44.1 Chronic obstructive pulmonary disease with (acute) exacerbation (principal); F41.9 Anxiety disorder, unspecified; F43.10 Post-traumatic stress disorder, unspecified
CPT/HCPCS: 36415; 71045; 80053; 80306; 80307; 83880; 84484; 85025; 93005; 96374; J2930

== ENCOUNTER 2019-03-29 00:56 | Emergency (ER) | payer MEDICARE ==
[2019-03-29 02:04] LABS: #Basophils 0.1 thou/uL (0.0-0.2); #Eosinphils 0.1 thou/uL (0.0-0.7); #Lymphocytes 1.7 thou/uL (1.20-3.40); #Monocytes 0.3 thou/uL (0.11-0.59); %Basophils 1.6 % (0.0-1.0); %Eosinophils 1.8 % (0.0-10.0); %Monocytes 4.8 % (0.0-10.0); %Neutrophils 68.9 % (42.0-75.0); Hemoglobin 13.4 g/dL (12.0-16.0); Mean Corpuscular Hemoglobin 31.5 pg (27.0-31.0); Mean Corpuscular Volume 92.6 fL (78.0-98.0); Mean Platelet Volume 7.5 fL (7.4-10.4); Platelet Count 210 thou/uL (130-400); RBC Distribution Width 11.9 % (11.5-14.5); Red Blood Cell (RBC) Count 4.25 mill/uL (4.20-5.40); White Blood Cell (WBC) Count 7.2 thou/uL (4.8-10.8)
[2019-03-29 02:25] LABS: ALT (SGPT) 8 U/L (8-55); AST (SGOT) 18 U/L (5-34); Albumin 4.2 g/dL (3.5-5.0); Alkaline Phosphatase 58 U/L (40-110); Anion Gap 14 mmol/L (10-20); BUN (Urea Nitrogen) 13 mg/dL (9.8-20.1); Bilirubin, Total 0.7 mg/dL (0.2-1.2); CK (CPK) 73 U/L (29-168); Calc. Creatinine Clearance 0 mL/min (70-130); Calcium 9.3 mg/dL (7.8-10.44); Carbon Dioxide 23 mmol/L (22-29); Chloride 104 mmol/L (98-107); Estimated GFR-MDRD 79; Globulin 2.7 g/dL (2.4-3.5); Glucose 106 mg/dL (70-105); Potassium 3.5 mmol/L (3.5-5.1); Protein, Total 6.9 g/dL (6.0-8.3); Sodium 137 mmol/L (136-145)
--- NOTE | 2019-03-29 09:07 | RAD ---
PORTABLE CHEST 1 VIEW: Date: 03/29/19 Time: 0233 hours HISTORY: COPD and shortness of breath. FINDINGS: Comparison made with exam of 03/19/19. The heart size is normal. The aorta is tortuous. The lungs are expanded without lobar consolidation, pneumothoraces, or pleural effusions. There are degenerative changes in the spine. IMPRESSION: No acute process. POS: [facility]
== END 2019-03-29 03:37 | disposition home or self-care (01) ==
LOC: ERS 00:56
DX: J44.1 Chronic obstructive pulmonary disease with (acute) exacerbation (principal); F41.9 Anxiety disorder, unspecified; F43.10 Post-traumatic stress disorder, unspecified; F17.210 Nicotine dependence, cigarettes, uncomplicated
CPT/HCPCS: 36415; 71045; 80053; 82550; 84484; 85025; 93005

== ENCOUNTER 2019-05-12 14:16 | Observation (INO) | payer MEDICARE ==
[2019-05-12] MEDS ORDERED: methylPREDNISolone Sod Succ/PF 125 MG/2 ML VIAL ONE (14:22)
[2019-05-12] MEDS ORDERED: Magnesium 2 GM/50 ML BAG (IN WATER) ONE (14:22)
[2019-05-12] MEDS ORDERED: Ondansetron PF 4 MG/2 ML Vial ONE (14:27)
--- NOTE | 2019-05-12 14:37 | RAD ---
EXAM: Single view of the chest HISTORY: Shortness of breath COMPARISON: 03/29/2019 FINDINGS: Single view of the chest shows a normal sized cardiomediastinal silhouette. There is no juma dence of consolidation, mass, or pleural effusion. Degenerative changes seen in the spine. IMPRESSION: No evidence of acute cardiopulmonary disease
[2019-05-12 14:49] LABS: #Basophils 0.1 thou/uL (0.0-0.2); #Eosinphils 0.6 thou/uL (0.0-0.7); #Lymphocytes 2.4 thou/uL (1.20-3.40); #Monocytes 0.6 thou/uL (0.11-0.59); #Neutrophils 4.1 thou/uL (1.40-6.50); %Basophils 0.7 % (0.0-1.0); %Eosinophils 7.7 % (0.0-10.0); %Lymphocytes 31.3 % (21.0-51.0); %Monocytes 7.1 % (0.0-10.0); %Neutrophils 53.3 % (42.0-75.0); Mean Corpuscular HGB CONC 33.2 g/dL (32.0-36.0); Mean Corpuscular Hemoglobin 31.2 pg (27.0-31.0); Mean Corpuscular Volume 94.1 fL (78.0-98.0); Mean Platelet Volume 8.1 fL (7.4-10.4); Platelet Count 201 thou/uL (130-400); RBC Distribution Width 11.4 % (11.5-14.5); Red Blood Cell (RBC) Count 4.48 mill/uL (4.20-5.40); White Blood Cell (WBC) Count 7.8 thou/uL (4.8-10.8)
[2019-05-12 14:51] LABS: Actual Bicarbonate (HCO3a) 27.5 mEq/L (22-28); Base Excess (BEa) 0.1 mEq/L (-2.0 to +3.0); CO2 Tension 56.1 mmHg (35.0-45.0); Calcium, Ionized 1.21 mmol/L (1.12-1.30); Carboxyhemoglobin (COHb) 3.7 gm% (0.0-3.0); Hemoglobin (Hb) 14.1 g/dL (12.0-16.0); O2 Tension (PaO2) 55.7 mmHg (80.0-100.0); pH, Arterial 7.31 (7.35-7.45)
[2019-05-12 14:52] LABS: ALV-art Gradient 23.905 (0-20); Puncture Site L.B.
[2019-05-12 15:07] LABS: ALT (SGPT) 12 U/L (8-55); AST (SGOT) 23 U/L (5-34); Acetaminophen Less than 6.0 mcg/mL (10.0-30.0); Albumin 4.4 g/dL (3.5-5.0); Alcohol Less than 10 mg/dL (Less than 10); Alkaline Phosphatase 61 U/L (40-110); Anion Gap 14 mmol/L (10-20); BUN (Urea Nitrogen) 11 mg/dL (9.8-20.1); Bilirubin, Total 1.2 mg/dL (0.2-1.2); CK (CPK) 106 U/L (29-168); Calc. Creatinine Clearance 0 mL/min (70-130); Calcium 9.4 mg/dL (7.8-10.44); Carbon Dioxide 27 mmol/L (22-29); Chloride 102 mmol/L (98-107); Estimated GFR-MDRD 71; Globulin 2.9 g/dL (2.4-3.5); Glucose 135 mg/dL (70-105); Potassium 3.8 mmol/L (3.5-5.1); Protein, Total 7.3 g/dL (6.0-8.3); Salicylate Less than 8.0 mg/dL (15.0-30.0); Sodium 139 mmol/L (136-145)
[2019-05-12 15:10] LABS: BHCG - Serum Negative (NEGATIVE); Pregs Control Background? CLEAR/WHITE (CLR/WHITE); Pregs Control Bar Appear? YES (CONTROL BAR)
--- NOTE | 2019-05-12 15:35 | CT ---
EXAM: CT brain without contrast HISTORY: Altered mental status COMPARISON: 01/16/2015 TECHNIQUE: Multiple contiguous axial images were obtained and a CT of the brain without contrast. FINDINGS: The brain is normal in morphology and attenuation without focal lesions or confluent areas of infarction. There is no evidence of hydrocephalus, intracranial hemorrhage, or extra-axial fluid collection. The calvarium and overlying soft tissues are unremarkable. The visualized paranasal sinuses and masto id air cells are well aerated. IMPRESSION: No evidence of acute intracranial abnormality
[2019-05-12] MEDS ORDERED: Ketorolac Tromethamine 30 MG/ML VIAL ONE (16:19)
[2019-05-12 17:10] LABS: Amphetamine Not Detected (NotDetected); Barbiturates Screen Not Detected (NotDetected); Benzodiazepine Screen Not Detected (NotDetected); Cocaine Metabolite Screen Detected (NotDetected); Medtox Control Line Valid? VALID (VALID); Medtox Reader # READER 1; Methadone Not Detected (NotDetected); Methamphetamine Not Detected (NotDetected); Opiate Screen Not Detected (NotDetected); Oxycodone Screen Not Detected (NotDetected); Phencyclidine (PCP) Not Detected (NotDetected); THC/Cannabinoid Screen Not Detected (NotDetected); Tricyclic Screen Not Detected (NotDetected)
[2019-05-12] MEDS ORDERED: Bacteriostatic Water 30 ML VIAL FS PRN (19:01)
[2019-05-12] MEDS ORDERED: Ondansetron PF 4 MG/2 ML Vial IVP PRN (19:13)
[2019-05-12] MEDS ORDERED: Acetaminophen 325 MG TAB PO PRN (19:13)
[2019-05-12] MEDS ORDERED: Ondansetron ODT 4 MG TAB SL PRN (19:13)
[2019-05-12 19:22] VITALS: BMI 20.2
[2019-05-12] MEDS: traMADol HCl 50 MG TAB PO PRN (19:31)
[2019-05-12] MEDS ORDERED: Melatonin 3 MG TAB PO SCH (22:15)
[2019-05-12] MEDS: methylPREDNISolone Sod Succ 40 MG VIAL IVP SCH (22:26)
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
[2019-05-13] MEDS: methylPREDNISolone Sod Succ 40 MG VIAL IVP SCH ×4 (04:50→23:52)
[2019-05-13] MEDS: Arformoterol 15 MCG/2 ML NEB NEB SCH ×2 (06:36→19:09)
--- NOTE | 2019-05-13 11:15 | RAD ---
EXAM: Esophagram HISTORY: Dysphagia COMPARISON: None EXPOSURE: 2.8 minutes; 10.877 Gy per centimeter squared FINDINGS: A double contrast barium swallow/esophagram was performed. Esophageal motility is delayed with multiple tertiary contractions seen.. No mucosal lesions are seen in the esophagus. No extrinsic compression on the esophagus is seen. No hiatal hernia. No gastroesophageal reflux. IMPRESSION: Delayed esophageal motility without evidence of stricture or esophageal mass.
[2019-05-13] MEDS: ALPRAZolam 0.5 MG TAB PO PRN ×2 (12:09→21:41)
--- NOTE | 2019-05-13 12:12 | PDOC.HOSPP ---
- Subjective Encounter Date: 05/13/19 Encounter Time: 10:40 Subjective: No new complaint.. +Dysphagia. - Objective Vital Signs & Weight: Vital Signs (12 hours) Temp Pulse Resp BP Pulse Ox 05/13/19 07:23 98.3 F 81 18 101/63 93 L 05/13/19 06:40 97 05/13/19 06:39 76 18 97 05/13/19 06:36 76 18 97 05/13/19 04:20 97.4 F L 71 19 108/73 92 L Weight Weight 129 lb 3.2 oz I&O: 05/12/19 05/13/19 05/14/19 06:59 06:59 06:59 Intake Total 2 Balance 2 Result Diagrams: 05/12/19 14:23 05/12/19 14:23 Additional Labs: Accuchecks 05/12/19 14:25 POC Glucose 131 H Hospitalist ROS - Medication Medications: Active Medications Generic Name Dose Route Start Last Admin Trade Name Freq PRN Reason Stop Dose Admin Albuterol/Ipratropium 3 ml 05/12/19 19:00 05/13/19 06:39 Duoneb NEB 3 ml [id number] CAROL Administration Alprazolam 0.5 mg 05/13/19 11:48 05/13/19 12:09 Xanax PO 0.5 mg BIDPRN PRN Administration Anxiety Arformoterol Tartrate 15 mcg 05/13/19 06:30 05/13/19 06:36 Brovana NEB 15 mcg BID-RT CAROL Administration Methylprednisolone Sodium Succinate 40 mg 05/12/19 23:59 05/13/19 12:09 Solu-Medrol IVP 40 mg Q6HR CAROL Administration Sertraline HCl 100 mg 05/13/19 12:00 05/13/19 12:09 Zoloft PO 05/13/19 14:00 100 mg NOW CAROL Administration Tramadol HCl 50 mg 05/12/19 19:21 05/12/19 19:31 Ultram PO 50 mg Q4H PRN Administration Moderate Pain (4-6) - Exam General Appearance: NAD Neck: no JVD Heart: RRR Respiratory: wheezes Gastrointestinal: soft Extremities: no edema Neurological: no weakness Psychiatric: A&O x 3 Hosp A/P (1) Dysphagia Code(s): R13.10 - DYSPHAGIA, UNSPECIFIED Status: Acute (2) Dysphagia Code(s): R13.10 - DYSPHAGIA, UNSPECIFIED Status: Acute (3) Acute respiratory failure with hypoxia Code(s): J96.01 - ACUTE RESPIRATORY FAILURE WITH HYPOXIA Status: Acute (4) COPD exacerbation Code(s): J44.1 - CHRONIC OBSTRUCTIVE PULMONARY DISEASE W (ACUTE) EXACERBATION Status: Acute - Plan Continue bronchodilators, steroids.. f/u barium swallow.
[2019-05-13] MEDS: traMADol HCl 50 MG TAB PO PRN (17:55)
[2019-05-13] MEDS: Melatonin 3 MG TAB PO PRN (21:41)
[2019-05-14] MEDS: methylPREDNISolone Sod Succ 40 MG VIAL IVP SCH ×4 (05:33→23:59)
[2019-05-14] MEDS: Arformoterol 15 MCG/2 ML NEB NEB SCH ×2 (06:37→18:54)
[2019-05-14] MEDS: ALPRAZolam 0.5 MG TAB PO PRN ×2 (08:29→20:54)
[2019-05-14] MEDS: traMADol HCl 50 MG TAB PO PRN ×3 (08:29→21:24)
[2019-05-14] MEDS ORDERED: guaiFENesin 100 MG/5 ML UDCUP PO PRN (09:14)
[2019-05-14] MEDS: Diabetic Tussin 200 MG/10 ML UDCUP PO PRN ×2 (11:45→17:54)
--- NOTE | 2019-05-14 12:26 | PDOC.HOSPP ---
- Subjective Encounter Date: 05/14/19 Encounter Time: 11:45 Subjective: +Productive cough.. - Objective Vital Signs & Weight: Vital Signs (12 hours) Temp Pulse Resp BP BP Pulse Ox 05/14/19 11:46 97.9 F 85 20 116/77 95 05/14/19 08:10 98.0 F 94 20 113/70 94 L 05/14/19 08:00 98.0 F 94 20 113/70 94 L 05/14/19 06:44 84 18 95 05/14/19 06:42 95 05/14/19 06:37 84 18 95 Weight Weight 129 lb 3.2 oz I&O: 05/13/19 05/14/19 05/15/19 06:59 06:59 06:59 Intake Total 2 1644 Balance 2 1644 Result Diagrams: 05/12/19 14:23 05/12/19 14:23 Hospitalist ROS - Medication Medications: Active Medications Generic Name Dose Route Start Last Admin Trade Name Freq PRN Reason Stop Dose Admin Albuterol/Ipratropium 3 ml 05/12/19 19:00 05/14/19 06:44 Duoneb NEB 3 ml [id number] CAROL Administration Alprazolam 0.5 mg 05/13/19 11:48 05/14/19 08:29 Xanax PO 0.5 mg BIDPRN PRN Administration Anxiety Arformoterol Tartrate 15 mcg 05/13/19 06:30 05/14/19 06:37 Brovana NEB 15 mcg BID-RT CAROL Administration Melatonin 3 mg 05/12/19 22:15 05/13/19 21:41 Melatonin PO 3 mg HSPRN PRN Administration Insomnia Methylprednisolone Sodium Succinate 40 mg 05/12/19 23:59 05/14/19 11:45 Solu-Medrol IVP 40 mg Q6HR CAROL Administration Sertraline HCl 100 mg 05/14/19 09:00 05/14/19 08:29 Zoloft PO 100 mg DAILY CAROL Administration Tramadol HCl 50 mg 05/12/19 19:21 05/14/19 08:29 Ultram PO 50 mg Q4H PRN Administration Moderate Pain (4-6) - Exam General Appearance: NAD Neck: no JVD Heart: RRR Respiratory: CTAB Gastrointestinal: soft Extremities: no edema Neurological: no focal deficits Hosp A/P (1) Dysphagia Code(s): R13.10 - DYSPHAGIA, UNSPECIFIED Status: Acute (2) Dysphagia Code(s): R13.10 - DYSPHAGIA, UNSPECIFIED Status: Acute Plan: Barium swallow results noticed.. (3) Acute respiratory failure with hypoxia Code(s): J96.01 - ACUTE RESPIRATORY FAILURE WITH HYPOXIA Status: Acute (4) COPD exacerbation Code(s): J44.1 - CHRONIC OBSTRUCTIVE PULMONARY DISEASE W (ACUTE) EXACERBATION Status: Acute - Plan Continue bronchodilators, steroids.. Check o2 site after exercise.. Possible discharge tomorrow.
[2019-05-14] MEDS: Acetaminophen 325 MG TAB PO PRN (13:42)
[2019-05-14] MEDS: Melatonin 3 MG TAB PO PRN (20:54)
[2019-05-15] MEDS: methylPREDNISolone Sod Succ 40 MG VIAL IVP SCH (05:14)
[2019-05-15] MEDS: Diabetic Tussin 200 MG/10 ML UDCUP PO PRN (05:14)
[2019-05-15 07:45] VITALS: BP 136/89; TEMP 98
[2019-05-15] MEDS: Arformoterol 15 MCG/2 ML NEB NEB SCH (07:54)
[2019-05-15] MEDS: Acetaminophen 325 MG TAB PO PRN ×2 (07:56→16:01)
[2019-05-15] MEDS: ALPRAZolam 0.5 MG TAB PO PRN (07:57)
[2019-05-15] MEDS: traMADol HCl 50 MG TAB PO PRN (16:02)
--- NOTE | 2019-05-16 12:29 | DIS ---
DATE OF ADMISSION: 05/12/2019 DATE OF DISCHARGE: 05/15/2019 DISCHARGE DIAGNOSES: Acute hypoxic respiratory failure secondary to COPD exacerbation depression, anxiety, and restless legs syndrome. CONSULTATIONS: None. PROCEDURES: None. BRIEF HISTORY OF PRESENT ILLNESS: This is a 59-year-old female, who has a history of COPD, who presented to the ER with increasing shortness of breath. The patient reported excessive cough that she was not able to relieve at home. The patient states that she was taking Pulmicort inhaler at home, but ran out of her albuterol rescue inhaler. She denied any upper URI symptoms. The patient states that she was a former smoker and quit smoking a few months ago. Upon arrival to the ER, the patient was noted to be wheezing. She was given IV Solu-Medrol and DuoNeb. However, required some supplemental oxygen to keep O2 saturation greater than 90 %. She was admitted for possible COPD exacerbation. Chest x-ray on admission was unremarkable. Acute hypoxic respiratory failure secondary to COPD exacerbation: The patient was treated with breathing treatments and IV steroids. She was weaned off oxygen and upon ambulation was maintaining saturations above 95% on room air. Upon discharge, she was given a prescription for prednisone, which the patient should take 60 mg for 2 days, then 40 mg for 2 days, then 20 mg for 2 days. She was also started on azithromycin for 5 days. She was advised to follow up with her PCP in a week. The patient did have a chest x-ray on admission, which was negative. The patient complained of chest pain whenever she coughed. Her troponin was negative. She was given a prescription for tramadol for 3 days. In [place], [facility] was checked and the patient has not received any narcotic prescriptions in the past year. Dysphagia: The patient did have a barium swallow done on the , which showed delayed esophageal motility. She was advised to consider following up with the GI doctor as an outpatient and her PCP. Acute encephalopathy: The patient had a CT brain on admission, which was unremarkable. Her encephalopathy resolved on the day of discharge. DISCHARGE PHYSICAL EXAMINATION: VITAL SIGNS: Temperature 98, heart rate 87, blood pressure 136/89, and O2 saturation 94% on room air. GENERAL: The patient is anxious. She does have an excessive cough, however, it is not productive. CVS: Regular rate and rhythm with no murmurs, rubs or gallops. LUNGS: Clear to auscultation bilaterally with slightly diminished at the bases. ABDOMEN: Positive bowel sounds, soft, nontender, and nondistended. EXTREMITIES: No edema. IMAGING STUDIES: Chest x-ray: shows no acute disease. This was from May 12. CT brain on 05/12: shows no evidence of acute intracranial abnormality. Barium swallow x-ray on 05/13: delayed esophageal motility without evidence of stricture, esophageal mass. LABORATORY DATA: CBC on 05/12:unremarkable. BMP on 05/12: unremarkable except for slightly elevated glucose of 135. LFTs on 05/12: were unremarkable. TSH on 05/12 :was 1.9. Serum test :05/12 was negative. Ammonia 05/12 : 31. DISCHARGE CONDITION: The patient is stable for discharge home. ACTIVITY: As tolerated. DIET: Regular diet. DISCHARGE MEDICATIONS: New medications: 1. Albuterol rescue inhaler 2 puffs inhalation q.4 hours p.r.n. 2. Azithromycin 500 mg on day one, then 250 mg for 4 days after that. 3. Tessalon Perles 100 mg p.o. b.i.d. p.r.n. 4. Prednisone 60 mg for 2 days and 40 mg for 2 days, then 20 mg for 2 days. 5. Tramadol 25 mg p.o. q.6 hours p.r.n. for pleuritic chest pain. All other home medications were resumed. DISCHARGE INSTRUCTIONS: The patient is to follow up with her PCP in a week. She should consider getting an upper endoscopy done as an outpatient for evaluation of delayed esophageal motility on her barium swallow. Job ID: [id number] [facility]
== END 2019-05-15 18:14 | disposition home or self-care (01) ==
LOC: ERS 14:16 → INTOOBSV 19:02 → T4-B 19:02
PROVIDERS: ADMIT Hospitalist; ATTEND Hospitalist
DX: J44.1 Chronic obstructive pulmonary disease with (acute) exacerbation (principal); J96.01 Acute respiratory failure with hypoxia; R13.10 Dysphagia, unspecified; G93.40 Encephalopathy, unspecified; G25.81 Restless legs syndrome; F32.9 Major depressive disorder, single episode, unspecified; F41.9 Anxiety disorder, unspecified; Z79.51 Long term (current) use of inhaled steroids; Z79.52 Long term (current) use of systemic steroids; Z79.899 Other long term (current) drug therapy; Z87.891 Personal history of nicotine dependence
CPT/HCPCS: 36416; 70450; 71045; 74220; 80053; 80306; 80307; 82140; 82550; 82805; 84443; 84484; 84703; 85025; 93005; 94640; 96361; 96365; 96375; 96376; A4353; G0378; J1885; J2405; J2920; J2930; J3475; J7620

== ENCOUNTER 2021-06-01 04:10 | Observation (INO) | payer MEDICARE ==
[2021-06-01] MEDS ORDERED: methylPREDNISolone Sod Succ/PF 125 MG/2 ML VIAL ONE (04:46)
[2021-06-01 05:13] LABS: #Eosinphils 0.3 thou/uL (0.0-0.7); #Lymphocytes 1.6 thou/uL (1.20-3.40); #Monocytes 0.6 thou/uL (0.11-0.59); #Neutrophils 3.4 thou/uL (1.40-6.50); %Basophils 0.4 % (0.0-1.0); %Eosinophils 5.8 % (0.0-10.0); %Lymphocytes 26.4 % (21.0-51.0); %Monocytes 10.2 % (0.0-10.0); %Neutrophils 57.2 % (42.0-75.0); Hemoglobin 12.8 g/dL (12.0-16.0); Mean Corpuscular HGB CONC 33.8 g/dL (32.0-36.0); Mean Corpuscular Hemoglobin 32.4 pg (27.0-31.0); Mean Corpuscular Volume 95.9 fL (78.0-98.0); Mean Platelet Volume 7.6 fL (7.4-10.4); Platelet Count 175 thou/uL (130-400); RBC Distribution Width 12.2 % (11.5-14.5); Red Blood Cell (RBC) Count 3.96 mill/uL (4.20-5.40)
[2021-06-01 05:35] LABS: ALT (SGPT) 15 U/L (8-55); AST (SGOT) 22 U/L (5-34); Albumin 3.7 g/dL (3.5-5.0); Alkaline Phosphatase 50 U/L (40-110); Anion Gap 9 mmol/L (10-20); BUN (Urea Nitrogen) 12 mg/dL (9.8-20.1); Bilirubin, Total 0.5 mg/dL (0.2-1.2); Calc. Creatinine Clearance 0 mL/min (70-130); Calcium 9.2 mg/dL (7.8-10.44); Carbon Dioxide 30 mmol/L (22-29); Chloride 105 mmol/L (98-107); Globulin 2.7 g/dL (2.4-3.5); Glucose 95 mg/dL (70-105); Potassium 3.8 mmol/L (3.5-5.1); Protein, Total 6.4 g/dL (6.0-8.3); Sodium 140 mmol/L (136-145)
[2021-06-01 05:44] LABS: SARS-CoV-2 NAA Rapid Test Not Detected (NotDetected)
[2021-06-01] MEDS ORDERED: Ondansetron PF 4 MG/2 ML Vial IVP PRN (07:43)
[2021-06-01] MEDS: Gabapentin 300 MG CAP PO PRN ×2 (09:11→20:27)
[2021-06-01] MEDS: ALPRAZolam 0.5 MG TAB PO PRN ×2 (09:11→20:29)
[2021-06-01] MEDS: Famotidine 20 MG TAB PO SCH ×2 (09:12→20:28)
[2021-06-01] MEDS: Loratadine 10 MG TAB PO SCH (09:12)
[2021-06-01 10:31] VITALS: BMI 20.5
[2021-06-01] MEDS: Cepastat Lozenges 1 LOZ PO PRN ×2 (16:25→20:28)
[2021-06-01] MEDS: traMADol HCl 50 MG TAB PO PRN (16:27)
[2021-06-01] MEDS: Acetaminophen 325 MG TAB PO PRN (20:36)
[2021-06-02] MEDS: traMADol HCl 50 MG TAB PO PRN (04:58)
[2021-06-02] MEDS: Cepastat Lozenges 1 LOZ PO PRN (04:59)
[2021-06-02 06:10] LABS: #Eosinphils 0.1 thou/uL (0.0-0.7); #Lymphocytes 2.3 thou/uL (1.20-3.40); #Monocytes 0.8 thou/uL (0.11-0.59); #Neutrophils 10.6 thou/uL (1.40-6.50); %Basophils 0.3 % (0.0-1.0); %Eosinophils 0.5 % (0.0-10.0); %Lymphocytes 16.6 % (21.0-51.0); %Monocytes 5.7 % (0.0-10.0); %Neutrophils 76.8 % (42.0-75.0); Hemoglobin 13.3 g/dL (12.0-16.0); Mean Corpuscular HGB CONC 32.6 g/dL (32.0-36.0); Mean Corpuscular Hemoglobin 31.5 pg (27.0-31.0); Mean Corpuscular Volume 96.6 fL (78.0-98.0); Platelet Count 186 thou/uL (130-400); RBC Distribution Width 12.2 % (11.5-14.5); Red Blood Cell (RBC) Count 4.22 mill/uL (4.20-5.40); White Blood Cell (WBC) Count 13.9 thou/uL (4.8-10.8)
[2021-06-02 06:32] LABS: Anion Gap 11 mmol/L (10-20); BUN (Urea Nitrogen) 13 mg/dL (9.8-20.1); Calc. Creatinine Clearance 79 mL/min (70-130); Calcium 9.6 mg/dL (7.8-10.44); Carbon Dioxide 28 mmol/L (22-29); Chloride 103 mmol/L (98-107); Glucose 78 mg/dL (70-105); Potassium 3.8 mmol/L (3.5-5.1); Sodium 138 mmol/L (136-145)
[2021-06-02] MEDS ORDERED: predniSONE 20 MG TAB PO SCH (08:00)
[2021-06-02] MEDS: Loratadine 10 MG TAB PO SCH (08:22)
[2021-06-02] MEDS: Famotidine 20 MG TAB PO SCH (08:22)
[2021-06-02] MEDS: Gabapentin 300 MG CAP PO PRN (08:22)
[2021-06-02] MEDS: Acetaminophen 325 MG TAB PO PRN (08:22)
[2021-06-02] MEDS: ALPRAZolam 0.5 MG TAB PO PRN (08:22)
[2021-06-02 08:29] VITALS: BP 114/76; TEMP 97.9
[2021-06-02] MEDS ORDERED: FLU VACC QS2021-22(6MOS UP)/PF 60 MCG/0.5 ML SYRINGE IM ONE (09:00)
== END 2021-06-02 16:10 | disposition home or self-care (01) ==
LOC: ERS 04:10 → SUATTDRO 04:10 → T4-A 06:31
PROVIDERS: ADMIT Family Medicine; ATTEND Internal Medicine
DX: J44.1 Chronic obstructive pulmonary disease with (acute) exacerbation (principal); J06.9 Acute upper respiratory infection, unspecified; B97.89 Other viral agents as the cause of diseases classified elsewhere; F43.10 Post-traumatic stress disorder, unspecified; F41.9 Anxiety disorder, unspecified; Z79.899 Other long term (current) drug therapy; Z20.822 Contact with and (suspected) exposure to COVID-19
CPT/HCPCS: 0240U; 71045; 80048; 80053; 84484; 85025 ×2; 93005; 94640 ×3; 96374; 99285; 36415; G0378; J2930; J7512; J7620

== ENCOUNTER 2021-07-06 13:51 | Inpatient (IN) | payer MEDICARE ==
[2021-07-06] MEDS ORDERED: Ipratropium Bromide 2.5 ml Neb ONE (14:11)
[2021-07-06] MEDS ORDERED: methylPREDNISolone Sod Succ/PF 125 MG/2 ML VIAL ONE (14:11)
[2021-07-06] MEDS ORDERED: Albuterol Sulfate 2.5 mg/0.5 ml Neb ONE (14:11)
[2021-07-06] MEDS ORDERED: Magnesium 2 GM/50 ML BAG (IN WATER) ONE (14:11)
[2021-07-06 14:25] LABS: Actual Bicarbonate (HCO3a) 29.1 mEq/L (22-28); Analyzer IN Cardio ER; Base Excess (BEa) 2.7 mEq/L (-2.0 to +3.0); CO2 Tension 52.1 mmHg (35.0-45.0); Calcium, Ionized (arterial) 1.19 mmol/L (1.12-1.30); Carboxyhemoglobin (COHb) 2.6 gm% (0.0-3.0); Hemoglobin (Hb) 13.8 g/dL (12.0-16.0); O2 Tension (PaO2), arterial 316.3 mmHg (> 80.0); Potassium - ABG Lab 3.86 mmol/L (3.70-5.30); pH, Arterial 7.37 (7.35-7.45)
[2021-07-06 14:29] LABS: Puncture Site RRA
[2021-07-06 14:36] LABS: ALT (SGPT) 15 U/L (8-55); AST (SGOT) 28 U/L (5-34); Alkaline Phosphatase 60 U/L (40-110); Anion Gap 13 mmol/L (10-20); BUN (Urea Nitrogen) 12 mg/dL (9.8-20.1); Bilirubin, Total 0.7 mg/dL (0.2-1.2); Calc. Creatinine Clearance 0 mL/min (70-130); Calcium 8.8 mg/dL (7.8-10.44); Carbon Dioxide 29 mmol/L (22-29); Chloride 102 mmol/L (98-107); Globulin 2.9 g/dL (2.4-3.5); Glucose 101 mg/dL (70-105); Potassium 4.3 mmol/L (3.5-5.1); Protein, Total 6.9 g/dL (6.0-8.3); Sodium 140 mmol/L (136-145)
[2021-07-06 14:40] LABS: #Basophils 0.1 thou/uL (0.0-0.2); #Eosinphils 0.5 thou/uL (0.0-0.7); #Lymphocytes 3.1 thou/uL (1.20-3.40); #Monocytes 0.7 thou/uL (0.11-0.59); #Neutrophils 2.9 thou/uL (1.40-6.50); %Basophils 1.9 % (0.0-1.0); %Eosinophils 6.9 % (0.0-10.0); %Lymphocytes 42.3 % (21.0-51.0); %Monocytes 9.2 % (0.0-10.0); %Neutrophils 39.8 % (42.0-75.0); Hemoglobin 13.6 g/dL (12.0-16.0); Mean Corpuscular HGB CONC 34.2 g/dL (32.0-36.0); Mean Corpuscular Volume 96.4 fL (78.0-98.0); Mean Platelet Volume 7.7 fL (7.4-10.4); Platelet Count 216 thou/uL (130-400); RBC Distribution Width 11.9 % (11.5-14.5); Red Blood Cell (RBC) Count 4.11 mill/uL (4.20-5.40); White Blood Cell (WBC) Count 7.2 thou/uL (4.8-10.8)
[2021-07-06] MEDS ORDERED: Ketorolac Tromethamine 30 MG/ML VIAL ONE (15:04)
[2021-07-06] MEDS ORDERED: Acetaminophen 325 MG TAB PO PRN (15:08)
[2021-07-06] MEDS ORDERED: Ondansetron PF 4 MG/2 ML Vial IVP PRN (15:08)
[2021-07-06] MEDS ORDERED: Albuterol Sulfate 2.5 mg/3 ml Neb NEB PRN (15:11)
[2021-07-06] MEDS ORDERED: Enoxaparin Sodium 40 MG/0.4 ML SYRINGE SC SCH (15:15)
[2021-07-06 16:07] LABS: SARS-CoV-2 NAA Rapid Test Not Detected (NotDetected)
[2021-07-06] MEDS ORDERED: Enoxaparin Sodium 40 MG/0.4 ML SYRINGE ONE (16:16)
[2021-07-06] MEDS: methylPREDNISolone Sod Succ 40 MG VIAL IVP SCH (20:22)
[2021-07-06] MEDS: ALPRAZolam 0.5 MG TAB PO PRN (20:24)
[2021-07-06] MEDS: Gabapentin 300 MG CAP PO SCH (20:24)
[2021-07-06] MEDS: guaiFENesin/DM ER PO SCH (20:25)
[2021-07-06] MEDS ORDERED: FLU VACC QS2021-22(6MOS UP)/PF 60 MCG/0.5 ML SYRINGE IM ONE (23:30)
[2021-07-07] MEDS: methylPREDNISolone Sod Succ 40 MG VIAL IVP SCH ×3 (00:01→12:15)
[2021-07-07 01:16] VITALS: BMI 28.0
[2021-07-07] MEDS: Gabapentin 300 MG CAP PO SCH (08:13)
[2021-07-07] MEDS: guaiFENesin/DM ER PO SCH (08:14)
[2021-07-07] MEDS: ALPRAZolam 0.5 MG TAB PO PRN (08:18)
[2021-07-07 08:54] LABS: #Lymphocytes 0.9 thou/uL (1.20-3.40); #Monocytes 0.2 thou/uL (0.11-0.59); #Neutrophils 9.2 thou/uL (1.40-6.50); %Eosinophils 0.1 % (0.0-10.0); %Lymphocytes 8.9 % (21.0-51.0); %Monocytes 2.2 % (0.0-10.0); %Neutrophils 88.8 % (42.0-75.0); Hemoglobin 12.4 g/dL (12.0-16.0); Mean Corpuscular HGB CONC 32.2 g/dL (32.0-36.0); Mean Corpuscular Hemoglobin 31.2 pg (27.0-31.0); Mean Platelet Volume 8.2 fL (7.4-10.4); Platelet Count 207 thou/uL (130-400); RBC Distribution Width 11.8 % (11.5-14.5); Red Blood Cell (RBC) Count 3.98 mill/uL (4.20-5.40); White Blood Cell (WBC) Count 10.4 thou/uL (4.8-10.8)
[2021-07-07 09:00] LABS: Anion Gap 13 mmol/L (10-20); BUN (Urea Nitrogen) 27 mg/dL (9.8-20.1); Calc. Creatinine Clearance 78 mL/min (70-130); Calcium 8.9 mg/dL (7.8-10.44); Carbon Dioxide 26 mmol/L (22-29); Chloride 102 mmol/L (98-107); Glucose 152 mg/dL (70-105); Potassium 4.3 mmol/L (3.5-5.1); Sodium 137 mmol/L (136-145)
[2021-07-07] MEDS ORDERED: Enoxaparin Sodium 40 MG/0.4 ML SYRINGE SC SCH (09:00)
[2021-07-07 09:02] VITALS: BP 103/63; TEMP 98.2
== END 2021-07-07 13:15 | disposition home or self-care (01) | DRG 189 ==
LOC: ERS 13:51 → ERHOLD 15:01 → OBSVTOIN 15:01 → T4-B 16:08
PROVIDERS: ADMIT Internal Medicine; ATTEND Physician Assistant Medical
DX: J96.01 Acute respiratory failure with hypoxia (principal); J44.1 Chronic obstructive pulmonary disease with (acute) exacerbation; Z20.822 Contact with and (suspected) exposure to COVID-19; F41.9 Anxiety disorder, unspecified; F43.10 Post-traumatic stress disorder, unspecified; Z28.21 Immunization not carried out because of patient refusal; Z86.19 Personal history of other infectious and parasitic diseases; Z79.899 Other long term (current) drug therapy; Z79.52 Long term (current) use of systemic steroids; Z98.890 Other specified postprocedural states; Z90.2 Acquired absence of lung [part of]
CPT/HCPCS: 36415; 36600; 71045; 80048; 80053; 82805; 83880; 84484; 85025; 93005; 94640; 94644; 96365; 96366; 96375; J1650; J1885; J2920; J2930; J3475; J7611; J7620; U0002